=== PATIENT | male | born 1990 | race Caucasian/White ===

== ENCOUNTER 2023-05-12 00:06 | Observation (INO) ==
[2023-05-12] MEDS ORDERED: ACETAMINOPHEN 1,000 MG/100 ML VIAL IV STA (00:37)
[2023-05-12] MEDS ORDERED: SODIUM CHLORIDE 0.9% 1,000 ML IV SCH (00:45)
[2023-05-12 00:57] LABS: Basophils # (auto) 0.06 K/uL (0.00-0.20); Basophils % (auto) 0.5 %; Eosinophils # (auto) 0.38 K/uL (0.00-0.50); Eosinophils % (auto) 2.9 %; Hematocrit (blood only) 45.4 % (42.0-52.0); Hemoglobin 16.1 g/dl (14.0-18.0); Immature Granulocytes # (auto) 0.13 K/uL (0.01-0.20); Lymphocytes # (auto) 2.31 K/uL (1.20-3.40); Lymphocytes % (auto) 17.7 %; Mean Corpuscular Hemoglobin 29.9 pg (25.0-34.0); Mean Corpuscular Hgb Conc 35.5 g/dL (32.0-36.0); Mean Corpuscular Volume 84.2 fL (80.0-100.0); Mean Platelet Volume 10.1 fL (9.4-12.4); Monocytes # (auto) 0.76 K/uL (0.11-0.59); Monocytes % (auto) 5.8 %; Neutrophils # (auto) 9.43 K/uL (1.40-6.50); Neutrophils % (auto) 72.1 %; Platelet Count 342 K/uL (130-400); RDW Standard Deviation 36.4 fL (36.4-46.3); Red Blood Count 5.39 M/uL (4.70-6.10); White Blood Count 13.07 K/ul (4.8-10.8)
[2023-05-12 01:16] LABS: Bilirubin,Total 0.5 mg/dl (0.2-1.0); Calcium 10.1 mg/dl (8.6-10.3); Potassium 4.5 mmol/L (3.5-5.1)
[2023-05-12 01:22] LABS: Albumin Globulin Ratio 1.7 (0.9-2); BUN Creatinine Ratio 13.2 (10-20); Creatinine Clr Calc Pharmacy 131.2 ml/min; Est GFR (Non-African American) 109.6 ml/min; Globulin 2.9 gm/dl (2.5-4.0); Total Protein 7.9 gm/dl (6.0-8.3)
--- NOTE | 2023-05-12 03:05 | CT Scan Report ---
Exam(s): CT ABDOMEN + PELVIS Without Contrast EXAM: CT Abdomen and Pelvis Without Intravenous Contrast CLINICAL HISTORY: Reason for exam: RLQ abd pain. TECHNIQUE: Axial computed tomography images of the abdomen and pelvis without intravenous contrast. CTDI is 28.14 mGy and DLP is 1493.32 mGy-cm. Automated exposure control was utilized for the study. A dose lowering technique was utilized adhering to the principles of ALARA. COMPARISON: No relevant prior studies available. FINDINGS: Lung bases: Unremarkable. No mass. No consolidation. ABDOMEN: Liver: Fatty traction of the liver. Gallbladder and bile ducts: Unremarkable. No calcified stones. No ductal dilation. Pancreas: Unremarkable. No ductal dilation. Spleen: Unremarkable. No splenomegaly. Adrenals: Unremarkable. No mass. Kidneys and ureters: Unremarkable. No obstructing stones. No hydronephrosis. Stomach and bowel: Unremarkable. No obstruction. No mucosal thickening. PELVIS: Appendix: Marked inflammation surrounding the appendix in the right lower quadrant. The appendix is not distended and findings are concerning for possible perforated appendicitis without evidence of an abscess. Bladder: Unremarkable. No stones. Reproductive: Unremarkable as visualized. ABDOMEN and PELVIS: Intraperitoneal space: Unremarkable. No free air. No significant fluid collection. Bones/joints: No acute fracture. No dislocation. Soft tissues: Unremarkable. Vasculature: Unremarkable. No abdominal aortic aneurysm. Lymph nodes: Unremarkable. No enlarged lymph nodes. IMPRESSION: Marked inflammation surrounding the appendix in the right lower quadrant. The appendix is not distended and findings are concerning for possible perforated appendicitis without evidence of an abscess. Fatty infiltration of the liver. Communications: Call Doctor Appendicitis Electronically signed by: Jatinder Amanda M.D. 05/12/23 03:04 AM
[2023-05-12] MEDS ORDERED: cefOXitin 2,000 MG/60 ML BAG IV STA (03:20)
--- NOTE | 2023-05-12 04:21 | History & Physical Report ---
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 surgery History of Present Illness Chief Complaint: Pain in the belly right side that started approximately 11:00 last evening Primary Care Provider: NO PCP 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 last evening had a normal dinner and 11:00 started having some abdominal pain that started around the bellybutton lower belly and then went to the right side associated with some nausea but no vomiting He has never had this pain before Overall he enjoys good health does not take any medicine not any previous surgery Allergies Allergy/AdvReac Type Severity Reaction Status Date / Time Penicillins Allergy Unknown Unverified 05/12/23 03:16 Home Medications Medication Instructions Recorded Confirmed Type No Known Home Medications 05/12/23 05/12/23 History Past Med/Surg History Social History Smoking Status: Never smoker Preferred Language: Icelandic Feels Safe at Home: Yes Review of Systems Constitutional: As stated in general has enjoyed good health except the most recent episode Eyes: No problems reported does wear glasses Ear, Nose, Mouth, Throat: No ear nose or throat issues Respiratory: No respiratory issues Cardiovascular: Additional Comments: Denies any chest pain with activities Gastrointestinal: Never had any GI symptoms Physical Exam Physical Exam: Alert coherent very pleasant no distress significant other at bedside Head is normocephalic sclera nonicteric no cervical lymphadenopathy trachea midline Lungs clear to auscultation bilaterally no rhonchi or rails Heart no murmurs or gallop Abdomen tenderness in right lower quadrant McBurney's point positive Rovsing sign Extremities no pedal edema Results & Data Results & Data Vital Signs (Past 12 Hours) Vital Signs Temp Pulse Pulse Resp BP BP Pulse Ox 05/12/23 04:00 87 18 133/78 97 05/12/23 00:12 36.5 C 96 H 18 162/100 H 98 O2 Del Method 05/12/23 04:00 Room Air 05/12/23 00:12 Room Air Laboratory Results WBCs 13.07 with a left shift Other parameters were normal limit Diagnostic Findings CT scan of the abdomen marked inflammation surrounding the appendix concerning for possible perforated appendicitis PG Care Time/CCT Total # of Minutes Spent Total Time Spent with Patient: Total time spent is greater than 50% in coordination of care (as documented) at patient's floor/unit and/or counseling patient: Coding Level of Care Code 10536 INT INP/OBS CARE 2/55MIN Diagnoses Appendicitis, acute K35.80
--- NOTE | 2023-05-12 04:33 | Emergency Department Note ---
History of Present Illness General Chief complaint: Abdominal Pain Stated complaint: ABD PAIN Time Seen by Provider: 05/12/23 00:27 History of Present Illness Maximum Pain Intensity: 5 This is a 32-year-old male presenting to the emergency department for evaluation of right lower quadrant abdominal pain. The patient's symptoms were initially periumbilical but has migrated to the right lower quadrant. Pain initially started earlier this morning around 8 AM. The patient states the discomfort is a dull persistent 5/10. He has not had fevers or chills. No difficulty using the bathroom. No history of abdominal surgery in the past. He last ate food around 6 PM. Home Medications Medication Instructions Recorded Confirmed Type No Known Home Medications 05/12/23 05/12/23 History Allergies Allergy/AdvReac Type Severity Reaction Status Date / Time Penicillins Allergy Unknown Unverified 05/12/23 03:16 Past Med/Surg History Medical History No chronic diseases present Surgical History No significant past surgical history Social History Smoking Status: Never smoker Preferred Language: Chinese Feels Safe at Home: Yes Review of Systems A total of 10 systems reviewed and were otherwise negative Physical Exam Vital Signs Vital Signs - 24 hr 05/12/23 00:12 05/12/23 04:00 Temperature 36.5 C Temperature Source Temporal Artery Scan Pulse Rate 96 H Pulse Rate [Finger] 87 Pulse Rhythm [Finger] Regular Pulse Strength [Finger] Normal Respiratory Rate 18 18 Respiratory Effort / Characteristics Non-Labored Spontaneous Non-Labored Spontaneous Respiratory Depth Normal Normal Blood Pressure 162/100 H Blood Pressure [Right Arm] 133/78 Blood Pressure Mean 120 Blood Pressure Mean [Right Arm] 96 Blood Pressure Position [Right Arm] Lying Pulse Oximetry 98 97 Oxygen Delivery Method Room Air Room Air Sepsis Recent Fever Within 48 Hours No Sepsis New/Unexplained Change in Mental Status No Sepsis Action Taken by Nursing No Action Required VITALS: Vitals are noted on the nurse's note and reviewed by myself. Vital signs stable. GENERAL: Well-developed, well-nourished, white male, who is in no acute distress and resting comfortably. Patient is cooperative with the examination. HEAD: Normocephalic atraumatic. NECK: Supple without nuchal rigidity. No lymphadenopathy. No thyromegaly. Cervical spine is nontender. HEART: Regular rate and rhythm without murmurs gallops or rubs. LUNGS: Clear to auscultation bilaterally without wheezes, rales or rhonchi. No retractions or accessory muscle use. ABDOMEN: Positive normal bowel sounds x 4. Soft, with reproducible tenderness in the right lower quadrant. No CVA tenderness. MUSCULOSKELETAL: No muscle atrophy, erythema, or edema noted. Full range of motion in all extremities. Course Administered Medications Discontinued Medications Sodium Chloride (Nss) 1,000 mls @ 999 mls/hr IV .Q1H1M YENY Stop: 05/12/23 01:45 Last Infusion: 05/12/23 02:20 Dose: Infused Documented By: Admin: 05/12/23 01:12 Dose: 999 mls/hr Documented By: MYNOR Acetaminophen (Ofirmev) 1,000 mg in 100 mls @ 400 mls/hr IV NOW STA Stop: 05/12/23 00:51 Last Infusion: 05/12/23 02:30 Dose: Infused Documented By: Admin: 05/12/23 01:12 Dose: 400 mls/hr Documented By: MYNOR Cefoxitin Sodium (Mefoxin) 2,000 mg in 60 mls @ 100 mls/hr IV NOW STA Stop: 05/12/23 03:55 Last Infusion: 05/12/23 04:39 Dose: Infused Documented By: Admin: 05/12/23 04:00 Dose: 100 mls/hr Documented By: MYNOR Medical Decision Making Differential Diagnosis Differential diagnosis: Etiologies such as biliary colic, cholecystitis, hepatitis, pancreatitis, cardiac disease, pancreatitis, gastritis, peptic ulcer disease, appendicitis, cystitis, diverticulitis, mesenteric ischemia, inflammatory bowel disease, ileus, bowel obstruction, testicular/adnexal torsion, aortic pathology, shingles, as well as others were considered Laboratory Data 05/12/23 00:35 05/12/23 00:35 Lab Results 05/12/23 Range/Units 00:35 WBC 13.07 H (4.8-10.8) K/ul RBC 5.39 (4.70-6.10) M/uL Hgb 16.1 (14.0-18.0) g/dl Hct 45.4 (42.0-52.0) % MCV 84.2 (80.0-100.0) fL MCH 29.9 (25.0-34.0) pg MCHC 35.5 (32.0-36.0) g/dL RDW Std Deviation 36.4 (36.4-46.3) fL RDW Coeff of Mirella 12.0 (11.5-14.5) % Plt Count 342 (130-400) K/uL MPV 10.1 (9.4-12.4) fL Immature Gran % (Auto) 1.0 % Neut % (Auto) 72.1 % Lymph % (Auto) 17.7 % [place] % (Auto) 5.8 % Eos % (Auto) 2.9 % Baso % (Auto) 0.5 % Neut # (Auto) 9.43 H (1.40-6.50) K/uL Lymph # (Auto) 2.31 (1.20-3.40) K/uL [place] # (Auto) 0.76 H (0.11-0.59) K/uL Eos # (Auto) 0.38 (0.00-0.50) K/uL Baso # (Auto) 0.06 (0.00-0.20) K/uL Immature Gran # (Auto) 0.13 (0.01-0.20) K/uL Sodium 137 (136-145) mmol/L Potassium 4.5 (3.5-5.1) mmol/L Chloride 102 (98-107) mmol/L Carbon Dioxide 27 (21-32) mmol/L Anion Gap 8 (3-11) BUN 12 (6-23) mg/dl Creatinine 0.91 (0.6-1.4) mg/dl Est Cr Clr Drug Dosing 131.2 ml/min Est GFR ( Amer) 127.0 ml/min Est GFR (Non-Af Amer) 109.6 ml/min BUN/Creatinine Ratio 13.2 (10-20) Glucose 102 H (70-99(Fasting)) mg/dl Calcium 10.1 (8.6-10.3) mg/dl Total Bilirubin 0.5 (0.2-1.0) mg/dl AST 22 (13-39) U/L ALT 34 (7-52) U/L Alkaline Phosphatase 53 (34-104) U/L Total Protein 7.9 (6.0-8.3) gm/dl Albumin 5.0 (3.4-5.0) gm/dl Globulin 2.9 (2.5-4.0) gm/dl Albumin/Globulin Ratio 1.7 (0.9-2) Lipase 12 (11-82) U/L Imaging Data Radiologist's Impression: Abdomen/Pelvis CT 05/12/23 00:37 CR Exam(s): CT ABDOMEN + PELVIS Without Contrast EXAM: CT Abdomen and Pelvis Without Intravenous Contrast CLINICAL HISTORY: Reason for exam: RLQ abd pain. TECHNIQUE: Axial computed tomography images of the abdomen and pelvis without intravenous contrast. CTDI is 28.14 mGy and DLP is 1493.32 mGy-cm. Automated exposure control was utilized for the study. A dose lowering technique was utilized adhering to the principles of ALARA. COMPARISON: No relevant prior studies available. FINDINGS: Lung bases: Unremarkable. No mass. No consolidation. ABDOMEN: Liver: Fatty traction of the liver. Gallbladder and bile ducts: Unremarkable. No calcified stones. No ductal dilation. Pancreas: Unremarkable. No ductal dilation. Spleen: Unremarkable. No splenomegaly. Adrenals: Unremarkable. No mass. Kidneys and ureters: Unremarkable. No obstructing stones. No hydronephrosis. Stomach and bowel: Unremarkable. No obstruction. No mucosal thickening. PELVIS: Appendix: Marked inflammation surrounding the appendix in the right lower quadrant. The appendix is not distended and findings are concerning for possible perforated appendicitis without evidence of an abscess. Bladder: Unremarkable. No stones. Reproductive: Unremarkable as visualized. ABDOMEN and PELVIS: Intraperitoneal space: Unremarkable. No free air. No significant fluid collection. Bones/joints: No acute fracture. No dislocation. Soft tissues: Unremarkable. Vasculature: Unremarkable. No abdominal aortic aneurysm. Lymph nodes: Unremarkable. No enlarged lymph nodes. IMPRESSION: Marked inflammation surrounding the appendix in the right lower quadrant. The appendix is not distended and findings are concerning for possible perforated appendicitis without evidence of an abscess. Fatty infiltration of the liver. Communications: Call Doctor Appendicitis Electronically signed by: Jatinder Amanda M.D. 05/12/23 03:04 AM MDM Narrative Physical exam and history were performed. Nursing notes, EMR, and Medication List were personally reviewed. No social concerns were identified as barriers to patients care. Patient appears to have abdominal pain bringing him to the ER. IV access was established and labs were obtained. He was hydrated and medicated as above. Patient was made NPO. He was sent to CT scan for imaging of his belly. Patient's blood work is as above and was reviewed. He does have a slightly elevated white count of 13,000. He does not have significant anemia, bandemia, or gross electrolyte imbalance. Lipase and transaminases are not diagnostic. CT scan was performed and reviewed by myself and radiology. CT is concerning for acute appendicitis. Case was discussed with the on-call surgeon, Dr. Salvador, who will evaluate the patient here in the ER. Please see the surgical dictation for further patient course, plan, and disposition. The chart was completed utilizing [employer] Speech Voice Recognition Software. Grammatical errors, random word insertions, pronoun errors, and incomplete sentences are an occasional consequence of this system due to software limitations, ambient noise, and hardware issues. Any formal questions or concerns about the content, text, or information contained within the body of this dictation should be directly addressed to the provider for clarification. . Impression & Plan Appendicitis, acute Discharge Plan Visit Data Chief Complaint: Abdominal Pain Stated Complaint: ABD PAIN ED Provider: Shahid Anaya ED Midlevel Provider: Jose Raul Turcios Discharge Problem: Appendicitis, acute Forms Stand Alone Forms: My [employer] Prescriptions Prescriptions: No Action No Known Home Medications Referrals Referrals: PCP,NO [Primary Care Provider] -
[2023-05-12] MEDS ORDERED: LIDOCAINE 1%/EPINEPHRINE 1:100,000 20 ML VIAL ONE (07:17)
[2023-05-12] MEDS ORDERED: fentaNYL citrate PF 100 MCG/2 ML VIAL IV PRN (07:25)
[2023-05-12] MEDS ORDERED: ePHEDrine sulfate 50 MG/ML AMP IV PRN (07:25)
[2023-05-12] MEDS ORDERED: ATROPINE SULFATE 0.1 MG/ML 10ML SYR IV PRN (07:25)
[2023-05-12] MEDS ORDERED: ONDANSETRON INJ 2 MG/ML 2 ML VIAL IV PRN (07:25)
--- NOTE | 2023-05-12 07:25 | Anesthesiology Consultation ---
Date of Service May 12, 2023 Assessment & Plan Chart Review Chart Review: Acceptable Risk for Surgery Consults Requested none ASA ASA2E Proposed Anesthesia Anesthesia Type: General Risk / Benefits Reviewed With: PT / POA / Parent / Guardian, Accepts Plan and Informed Consent Obtained History Surgery Operation Date: 05/12/23 07:30 Proposed Procedures p Laparoscopic Appendectomy - Jus Salvador MD, FACS Height/Weight Height: 5 ft 4 in Weight: 113.9 kg Allergies Allergy/AdvReac Type Severity Reaction Status Date / Time Penicillins Allergy Unknown Unverified 05/12/23 03:16 Medications Home Medications Medication Instructions Recorded Confirmed Last Taken No Known Home Medications 05/12/23 05/12/23 Unknown NPO Date Last Intake of Fluids: 05/11/23 Time Last Intake of Fluids: 20:00 Date Last Intake of Solids: 05/12/23 Time Last Intake of Solids: 18:00 Past Medical History Medical History No chronic diseases present Exercise / Class Metabolic Activity II 4-5 Yardwork/Stairs/Walk up hill Past Surgical History Surgical History No significant past surgical history Past Anesthesia History No Hx of Anesthesia Complications and No Family Hx of Anesthesia Complications History of PONV No Hx of PONV and No Hx of Motion Sickness Social History Smoking Status: Never smoker Physical Exam Vital Signs Last Vital Signs Temp 97.7 F 05/12/23 00:12 Pulse 82 05/12/23 06:00 Resp 18 05/12/23 06:00 BP 145/85 H 05/12/23 06:00 Pulse Ox 96 05/12/23 06:00 O2 Del Method Room Air 05/12/23 06:00 ENMT Mouth: no dentition abnormality Thyromental Distance: > or= 3.5 Finger Breadths Mallampati Class: III Neck normal visual inspection Respiratory normal respiratory effort Auscultation: lungs clear to auscultation bilaterally Cardiovascular Rate/Rhythm: regular rate and regular rhythm Testing Laboratory Results 05/12/23 00:35 05/12/23 00:35
[2023-05-12] MEDS ORDERED: DEXAMETHASONE SOD INJ 4 MG/ML VIAL ONE (07:52)
[2023-05-12] MEDS ORDERED: ONDANSETRON INJ 2 MG/ML 2 ML VIAL ONE (07:52)
[2023-05-12] MEDS ORDERED: ROCURONIUM BROMIDE 10 MG/ML 5 ML VIAL IV ONE (07:52)
[2023-05-12] MEDS ORDERED: SUGAMMADEX SODIUM 200 MG/2 ML VIAL IV ONE (07:52)
[2023-05-12] MEDS ORDERED: PROPOFOL IV EMULSION 10 MG/ML 20 ML VIAL IV ONE (07:52)
[2023-05-12] MEDS ORDERED: fentaNYL citrate PF 100 MCG/2 ML VIAL ONE ×2 (07:52→08:06)
[2023-05-12] MEDS ORDERED: SUCCINYLCHOLINE CHLORIDE 20 MG/ML 10 ML VIAL IV ONE (07:52)
--- NOTE | 2023-05-12 09:06 | Post Operative Brief Note ---
Immediate Post Op Note v1 Date of Surgery May 12, 2023 Pre & Post Diagnosis Operation Date: 05/12/23 07:30 Pre-Op Diagnosis: ABD PAIN Post-Op Diagnosis: ABD PAIN I identified the patient and participated in the time-out.: Yes Procedure Operation Date: 05/12/23 07:30 Actual Procedures p Laparoscopic Appendectomy(Not Applicable) - Jus Salvador MD, FACS Surgeon Jus Salvador MD, FACS Director Of Channel Marketing o Estimated Blood Loss 10 Findings Consistent with Post-Op Diagnosis
[2023-05-12] MEDS ORDERED: HYDROCODONE/ACETAMOPHEN 5/325MG TAB PO PRN (09:12)
[2023-05-12] MEDS ORDERED: MEPERIDINE HCL 25 MG/ML CARP/VIAL IV STA (09:22)
[2023-05-12] MEDS ORDERED: MEPERIDINE HCL 25 MG/ML CARP/VIAL ONE (09:23)
--- NOTE | 2023-05-12 09:27 | Operative Report ---
PG Post Operative Report Pre & Post Diagnosis Operation Date: 05/12/23 07:30 Pre-Op Diagnosis: ABD PAIN Post-Op Diagnosis: ABD PAIN I identified the patient and participated in the time-out.: Yes Procedure Operation Date: 05/12/23 07:30 Actual Procedures p Laparoscopic Appendectomy(Not Applicable) - Jus Salvador MD, FACS The patient was brought into the operating theater general trach anesthesia supine position patient had voided the prior to being brought into the operating theater the abdomen was prepped Betadine solution properly draped systemic antibiotics had been on board patient identified timeout was had made a small incision transversely above the umbilicus sufficient enough to place a Veress needle followed by 5 mm trocar point of entry specter no injury identified we looked the right lower quadrant and identified the cecum did not see the appendix at this point on direct visualization I placed a 5 mm right upper quadrant trocar with preemptive local analgesic with this we were able to elevate the cecum and I could identify the appendix was acutely inflamed and adhered to the lateral abdominal wall this point I converted the 5 mm supraumbilical port by placing the camera right upper quadrant trocar site enlarged the incision then used a Alecia to dilate the previous 5 mm opening to enough to accommodate a 12 mm trocar at this point the 5 mm that we had removed we placed in the left lower quadrant with preemptive local analgesic of preemptive and direct visualization. We placed the patient in Trendelenburg position slightly total rotated to the left we then were able to elevate the cecum could identify the takeoff of the appendix from the cecum we created a window sufficient enough to place a purple load of the JAMESON which we fired then we divided the mesentery using clips we had some bleeding into the mesentery that was controlled eventually electrocautery and bleeding once we had freed this prolapse completely the appendix was placed in an Endopouch and taken out through the umbilical port intact the trocars were then repositioned we then spent some time making sure the hemostasis was controlled along the resected mesoappendix at this point identified that part of the appendix may have been still present and taken off to the cecum possibly a centimeter or so therefore I elected to immobilize the area and then used another load of the stapler purple nature to fire across thickened part of the cecum and the rest of the appendix the area was then checked hemostasis there was some oozing from the staple line was controlled with cautery the area was irrigated copiously who evaluated her multiple times. The second piece that we taken out with the appendix was taken out through the umbilical port without the bag since it did not seem to be inflamed. Patient was then placed in reverse Trendelenburg position the area was suctioned out copiously and no bleeding was identified individual trocars removed by first placing the camera in right upper quadrant visualizing the left lower quadrant trocars in the umbilical 1 and prior to doing that we visualized the opening the right upper quadrant trocar there was no bleeding identified and all of this that they were removed on direct visualization the umbilical port was then closed with 0 Vicryl [id number] x 3 making sure that the fascia was completely reapproximated then a piece 0 Vicryl was used for subcutaneous tissue on the umbilical area and the old one 4-0 Monocryl was applied Steri- Strips applied procedure was tolerated well by the patient estimated blood loss 10 cc Addendum I spoke with his in the waiting area Surgeon Jus Salvador MD, FACS Passenger Booking Clerk o Estimated Blood Loss 10 Findings Consistent with Post-Op Diagnosis Acute appendicitis with significant fibrinous exudate attached to the lateral wall no evidence of perforation grossly Specimens Append Indications Right lower quadrant pain acute Description of Procedure merda I attest to the content of the Intraoperative Record and any orders documented therein. Any exceptions are noted below.
--- NOTE | 2023-05-12 10:13 | Anesthesiology Progress Note ---
Date of Service May 12, 2023 Anesthesia Post Procedure Vital Signs Vital Signs: Temp Pulse Pulse Pulse Resp BP BP 05/12/23 10:06 97 H 15 124/65 05/12/23 09:55 97.2 F L 96 H 20 120/67 05/12/23 09:45 98 H 23 133/85 05/12/23 09:35 93 H 12 145/72 H 05/12/23 09:25 99 H 20 157/99 H 05/12/23 09:17 97.5 F L 104 H 18 167/90 H 05/12/23 06:00 82 18 145/85 H 05/12/23 04:00 87 18 133/78 05/12/23 00:12 97.7 F 96 H 18 162/100 H Pulse Ox O2 Del Method O2 Flow Rate 05/12/23 10:06 97 Nasal Cannula 2 05/12/23 09:55 91 Room Air 05/12/23 09:45 93 Room Air 05/12/23 09:35 97 Oxymask 5 05/12/23 09:25 92 Oxymask 5 05/12/23 09:17 100 Oxymask 11 05/12/23 06:00 96 Room Air 05/12/23 04:00 97 Room Air 05/12/23 00:12 98 Room Air Pain Intensity Right Abdomen: Pain Intensity: 6 Transfer of Care Handoff Completed per policy Notes Mental Status: alert / awake / arousable and participated in evaluation Patient Amnestic to Procedure: Yes Nausea / Vomiting: adequately controlled Pain: adequately controlled Airway Patency, RR, SpO2: stable & adequate BP & HR: stable & adequate Hydration State: stable & adequate Anesthetic Complications: no major complications apparent and Pt Satisfied with anesthetic care
[2023-05-12] MEDS ORDERED: oxyCODONE/ACETAMINOPHEN 5mg/325mg TAB PO PRN (12:33)
[2023-05-12 12:58] LABS: Appearance Urine Clear (Clear); Bacteria Urine Automated Negative (Negative); Bilirubin Urine Negative (Negative); Blood Urine Negative (Negative); Color Urine Yellow; Glucose Urine UA Negative (Negative); Ketones Urine Negative (Negative); Leukocyte Esterase Urine Negative (Negative); Nitrite Urine Negative (Negative); Protein Urine 1+ (Negative); RBC Urine Automated 0-4 /hpf (0-4); Specific Gravity Urine 1.022 (1.000-1.030); Urobilinogen Urine Negative (Negative)
[2023-05-12] MEDS ORDERED: LACTATED RINGER'S 1,000 ML IV SCH (17:15)
[2023-05-12 17:57] LABS: Hematocrit (blood only) 42.2 % (42.0-52.0); Hemoglobin 15.1 g/dl (14.0-18.0)
[2023-05-12 20:21] LABS: Hematocrit (blood only) 41.3 % (42.0-52.0); Hemoglobin 14.2 g/dl (14.0-18.0); Mean Corpuscular Hgb Conc 34.4 g/dL (32.0-36.0); Mean Corpuscular Volume 84.5 fL (80.0-100.0); Platelet Count 334 K/uL (130-400); RDW Coefficient of Variation 12.2 % (11.5-14.5); Red Blood Count 4.89 M/uL (4.70-6.10); White Blood Count 17.05 K/ul (4.8-10.8)
[2023-05-12 20:22] LABS: Basophils # (auto) 0.04 K/uL (0.00-0.20); Basophils % (auto) 0.2 %; Immature Granulocytes # (auto) 0.14 K/uL (0.01-0.20); Immature Granulocytes % (auto) 0.8 %; Lymphocytes # (auto) 1.34 K/uL (1.20-3.40); Lymphocytes % (auto) 7.9 %; Mean Platelet Volume 10.3 fL (9.4-12.4); Monocytes # (auto) 0.56 K/uL (0.11-0.59); Monocytes % (auto) 3.3 %; Neutrophils # (auto) 14.97 K/uL (1.40-6.50); Neutrophils % (auto) 87.8 %
[2023-05-12] MEDS: cefOXitin 2,000 MG in DEXTROSE 5 % MINI-B 50 ML IV SCH (22:08)
[2023-05-13] MEDS: cefOXitin 2,000 MG in DEXTROSE 5 % MINI-B 50 ML IV SCH ×2 (04:42→11:25)
--- NOTE | 2023-05-13 12:10 | Surgery Progress Note ---
Date of Service May 13, 2023 Assessment & Plan (1) Appendicitis, acute: Plan: Patient is 24 hours postop laparoscopic appendectomy for acute appendicitis with significant fibrinous exudate without obvious perforation We kept the patient overnight since he had a tachycardia after surgery and wanted to monitor him hemodynamically Heart rate this morning is 93 other vitals noted Also noted repeat hemoglobin and white count after the surgery showed his white count to still be moderately elevated with left shift therefore due to his tachycardia we continued the patient on antibiotic for 24hr Will repeat the labs this morning The patient can be discharged instructions return to our office next week no driving till we see him no lifting anything over 10 pounds he may shower Patient may take Tylenol or Motrin for pain Plan Discharged today Instructions given Admission and Anticipated Discharge Date Admission Date: May 12, 2023 Subjective Feels much better this morning denies any abdominal discomfort tolerating a diet moving up and around without any issues Not taken anything for pain and denies any chills or fever Physical Exam Physical Exam: Alert coherent significant other present Resting bed without any discomfort The abdomen is completely benign the trocar sites are healing well Results & Data Vital Signs (Past 12 Hours) Vital Signs Temp Pulse Resp BP Pulse Ox O2 Del Method 05/13/23 11:35 Room Air 05/13/23 08:41 36.9 C 93 H 18 139/84 97 Room Air 05/13/23 03:00 36.7 C 102 H 18 135/87 96 Room Air
[2023-05-13 12:54] LABS: Basophils # (auto) 0.05 K/uL (0.00-0.20); Basophils % (auto) 0.3 %; Eosinophils # (auto) 0.02 K/uL (0.00-0.50); Eosinophils % (auto) 0.1 %; Hematocrit (blood only) 42.9 % (42.0-52.0); Hemoglobin 14.6 g/dl (14.0-18.0); Immature Granulocytes # (auto) 0.19 K/uL (0.01-0.20); Immature Granulocytes % (auto) 1.3 %; Lymphocytes # (auto) 2.96 K/uL (1.20-3.40); Lymphocytes % (auto) 19.5 %; Mean Corpuscular Hemoglobin 28.9 pg (25.0-34.0); Mean Platelet Volume 10.1 fL (9.4-12.4); Monocytes # (auto) 0.84 K/uL (0.11-0.59); Monocytes % (auto) 5.5 %; Neutrophils % (auto) 73.3 %; Platelet Count 314 K/uL (130-400); RDW Coefficient of Variation 12.4 % (11.5-14.5); Red Blood Count 5.05 M/uL (4.70-6.10); White Blood Count 15.16 K/ul (4.8-10.8)
== END 2023-05-13 13:05 | disposition home or self-care (01) ==
LOC: ED 00:06 → 3W 07:07 → OR 07:07